=== PATIENT | male | born 1995 | race Caucasian/White ===

== ENCOUNTER 2023-04-26 15:20 | Emergency (ER) | payer OTHER, SELFPAY ==
--- NOTE | ~2023-04-26 | CT_ITS ---
EXAMINATION: CT ORBIT WITH CONTRAST CLINICAL INFORMATION: Right eyelid swelling and pain. COMPARISON: None available. TECHNIQUE: Axial images through the orbits following 85 mL Omnipaque 350 IV contrast. Sagittal and coronal reconstructions on the technologist workstation were performed. This CT examination was performed using dose optimization techniques as appropriate, variously including the following: *Automated exposure control *Adjustment of mA and/or kV according to patient size (this includes techniques or standardized protocols for targeted exams where dose is matched to indication/reason for exam; i.e. extremities or head) *Use of iterative reconstruction technique DLP: 172 mGy-cm FINDINGS: There is asymmetric enlargement of the right lacrimal gland and adjacent fat stranding suggestive of right lacrimal gland dacryoadenitis. There is increased soft tissue and a small amount of air more anterior inferiorly questionable right periorbital abscess. This measures 1.2 x 0.7 x 1.5 cm in dimension. There is right preseptal soft tissue swelling. The left orbit is normal. There is inflammatory change seen in the right frontal, maxillary and ethmoid sinuses. The mastoid air cells and middle ears are clear. Temporomandibular joints are normal. No adenopathy. Visualized intracranial structures are normal. CT/CT orbit BI w IV con IMPRESSION: Right lacrimal gland dacryoadenitis. There is an increased soft tissue and a small amount of air more anterior inferiorly questionable for small right periorbital abscess. Differential would include IgG4 pseudotumor and less likely lymphoma. Inflammatory changes in the right paranasal sinuses.
[2023-04-26 15:51] VITALS: BP 123/95; PULSE 83; RESP 18; TEMP 36.5; O2SAT 97; BMI 41.0
--- NOTE | 2023-04-26 15:56 | ED_ITS ---
HPI - Eye Problem General Chief complaint: Eye Problems Stated complaint: R eye swelling/?[place] eye Time Seen by Provider: 04/26/23 18:37 Source: patient, RN notes reviewed and old records reviewed Mode of arrival: ambulatory Limitations: no limitations History of Present Illness HPI Narrative: 28-year-old male presents for evaluation of right eye redness, swelling He reports that just under a week ago he noticed the redness, itching and discharge from the eye He states that his 1-year-old son was diagnosed with pinkeye about a week ago The patient's son was prescribed polymyxin B The patient discuss with his doctor and was given the same prescription He was unable to use the prescription and therefore was using his son's after consulting with the pharmacist Patient reports that after starting the polymyxin B prescription he noticed swelling starting 2 days ago. The I had previously been red with discharge but not been swollen He denies any trauma to the eye He denies any change to his vision No other complaints or concerns at this time Related Data Previous Rx's Medication Instructions Recorded amoxicillin 875 mg-potassium 1 tab PO Q12H #14 tabs 04/26/23 clavulanate 125 mg tablet moxifloxacin 0.5 % eye drops 1 drp ophthalmic (eye) TID 7 days 04/26/23 #3 mL Allergies Allergy/AdvReac Type Severity Reaction Status Date / Time No Known Allergies Allergy Verified 04/26/23 15:51 Review of Systems 2 Constitutional: Constitutional: Denies chills, Denies fever(s) and Denies headache(s) Eyes: Eyes: Denies blurry vision, Denies change in vision, Reports eye discharge, Reports irritation, Reports itchy eyes and Reports eye pain ENT: Denies headache(s) Cardiovascular: Cardiovascular: Denies dyspnea Respiratory: Respiratory: Denies cough and Denies dyspnea Musculoskeletal: Musculoskeletal: Denies back pain Integumentary/Breasts: Skin/Breast: Denies rash Neurologic: Denies headache(s) Allergic/Immunologic: Allergic/Immunologic: Reports itchy eyes PMFSH Social History Social History Advance Directives: No Advance Directives Information Provided: No Physical Exam 2 Vital Signs: Vital Signs: Last Vital Signs Temp 97.7 F 04/26/23 15:51 Pulse 83 04/26/23 15:51 Resp 18 04/26/23 15:51 BP 123/95 H 04/26/23 15:51 Pulse Ox 97 04/26/23 15:51 O2 Del Method Room Air 04/26/23 15:51 BMI result Body Mass Index 41.0 Const: General: healthy appearing, comfortable, no acute distress, alert and awake Nutritional Appearance: well nourished Orientation/consciousness: p atient oriented x3 HEENT: Head: Yes normocephalic and Yes atraumatic Eyes: Visual Fung: normal visual fung by confrontation Alignment and Position: alignment normal Periorbital: periorbital findings abnormal right periorbital swelling, periorbital tenderness and periorbital erythema; no ecchymosis and no crepitus Eyelids: Yes eyelid abnormality (Right upper eyelid slightly edematous and erythematous) Conjunctivae: conjunctival abnormal (Right-sided conjunctival injection, no chemosis) Pupils: Equal, round and reactive pupils present EOM: EOMs intact bilaterally (In all cardinal directions without nystagmus or entrapment) and No Nystagmus present Resp: Effort & Inspection: normal respiratory effort, able to speak in complete sentences and not labored Skin: General skin exam: elasticity normal Neuro: General: patient oriented x3 Cranial nerves: Yes CN's II-XII intact bilaterally, Yes Equal, round and reactive pupils present, Yes Bilaterally intact EOM present and No Nystagmus present Cognition (Neuro): normal cognition Course Course Course Narrative: BRE 15:57PM - 28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 Reports this all started on Saturday. Then he went to the urgent care on Saturday and was prescribed polymyxin drops and has been using this as prescribed with no symptomatic relief. He reports he did not have pain when looking towards the left with his right eye although for the past 2 days he has been. He denies any fevers, or any other symptoms complaints or concerns. On exam patient does have moderate erythema and soft tissue swelling to upper and lower right eyelids. Extraocular movements are intact although he reports pain to the right eye with looking towards the left. Plan: Labs, CT scan of orbits with IV contrast ordered at this time. Patient will be sent back to the waiting room. Reevaluation(s) Reevaluation #1: Patient's CT scan shows concerning for Periorbital cellulitis with Dr. Cadet and questionable small abscess. Given these findings, I discussed with Ophthalmology, Dr. Cole, after discussing the case he feels the patient is stable to be discharged home on oral antibiotics such as Augmentin. The patient should return to the ER for any new or worsening symptoms especially vision loss or severe pain. Otherwise he can follow-up as an outpatient. I discussed these concerns with the patient. His visual acuity in the right, affected eye is 20/30 which is better than his unaffected eye which is 20/70 on the left Time: 22:44 Medications Administered Discontinued Medications Generic Name Dose Route Start Last Admin Trade Name Freq PRN Reason Stop Dose Admin Iohexol 85 ml 04/26/23 20:16 04/26/23 20:17 Iohexol 350 Mg/Ml 100 Ml Infus..Btl IV 04/26/23 20:17 85 ml ONCE ONE Administration Medical Decision Making Medical Decision Making [facility] Narrative: 28-year-old male presents for evaluation of right eye redness, swelling and discharge from the eye. He reports that initially it was just the eye itself that was reddened he was prescribed polymyxin. He was taking use on prescription, as the pharmacy did not have the correct dose for him and he would have to wait 2 days. The patient is concerned that he may have had a reaction to the antibiotic drops as he reports the symptoms worsened after taking it. His symptoms have been improving since earlier this morning and he has not use the drops since 7:00 a.m. the patient does not wear corrective lenses or contacts. He has slightly erythematous and edematous right upper eyelid. I have a low suspicion for preseptal cellulitis as his extraocular motions are intact in all cardinal directions without discomfort. However a CT scan was ordered to evaluate for this and labs are pending Differential Diagnosis Differential Diagnoses: The differential diagnosis associated with the presentation includes Blepharitis Conjunctivitis blepheroconjunctivitis Preseptal cellulitis Periorbital cellulitis Admission/Observation Consideration of admission/observation: Escalation of care including admission/observation considered Consider admission for IV antibiotics given the CT findings Lab Data [facility] Lab Attestation statement: I reviewed the patient's lab results. Mild leukocytosis to 11.4 K without a left shift. No electrolyte abnormalities 04/26/23 19:20 01/19/24 18:34 Labs: Lab Results 04/26/23 04/26/23 Range/Units 18:34 19:20 WBC 11.4 H (4.8-10.8) X10*3/uL RBC 5.37 (4.60-5.80) X10*6/uL Hgb 16.0 (14.0-18.0) g/dl Hct 46.3 (42.0-52.0) % MCV 86.2 (80.0-98.0) fL MCH 29.8 (27.0-33.0) pg MCHC 34.6 (31.0-36.0) g/dl RDW 12.8 (11.0-16.0) % Plt Count 301 (160-400) X10*3/uL MPV 10.1 (9.4-12.4) fL Immature Gran % (Auto) 0.4 (0.0-0.4) % Neut % (Auto) 56.1 (45-73) % Lymph % (Auto) 34.1 (20-40) % [place] % (Auto) 6.9 (2-11) % Eos % (Auto) 1.8 (0-4) % Baso % (Auto) 0.7 (0-2) % Lymph # (Auto) 3.9 (1.2-4.9) X10*3/uL [place] # (Auto) 0.8 (0.1-1.2) X10*3/uL Eos # (Auto) 0.2 (0.0-0.4) X10*3/uL Baso # (Auto) 0.1 (0.0-0.2) X10*3/uL Abs Immat Gran (auto) 0.04 H (0.00-0.03) X10*3/uL Absolute Neuts (auto) 6.4 (2.0-8.3) x10*3/uL Absolute Nucleated RBC 0.000 (0.0-0.012) X10*3/uL Nucleated RBC % (auto) 0.0 (0.0-0.2) /100WBC Sodium 141 (135-145) mmol/L Potassium 4.5 (3.3-5.1) mmol/L Chloride 103 (96-108) mmol/L Carbon Dioxide 28 (22-29) mmol/L Anion Gap 15 (12-20) BUN 12 (9-16) mg/dL Creatinine 0.81 (0.5-1.4) mg/dL Estim Creat Clear Calc 171.3 Estimated GFR > 60 Random Glucose 82 (60-115) mg/dL Calcium 10.6 H (8.4-10.2) mg/dL Magnesium 2.2 (1.6-2.6) mg/dL Total Bilirubin 0.3 (0.0-1.0) mg/dL AST 19 (5-37) U/L ALT 26 (0-40) U/L Alkaline Phosphatase 111 (39-117) U/L Total Protein 8.7 H (6.5-8.0) g/dL Albumin 4.6 (3.5-5.0) g/dL Radiology Impression Discussion of test interpretation with radiology: I have reviewed the radiologist's reading. Radiologist Impression: Right lacrimal gland DrMorris Adenitis. There is increased soft tissue and small amount of air more anterior inferiorly questionable small right pleural abscess. Discharge Plan Discharge Clinical Impression: Periorbital cellulitis of right eye Patient Disposition: Home, Self-Care Instructions: Periorbital Cellulitis in Adults (ED) Additional Instructions: Use the eyedrops 1 drop 3 times a day for 7 days Take the oral antibiotic twice daily for 7 days You may apply cool compresses Return to the ER immediately for any new or worsening symptoms, especially vision loss Otherwise, you may follow-up with Ophthalmology, Dr. Cole at the number provided Prescriptions: New amoxicillin-pot clavulanate 875-125 mg tablet 1 tab PO Q12H Qty: 14 0RF moxifloxacin 0.5 % drops 1 drp ophthalmic (eye) TID 7 Days Qty: 3 0RF
[2023-04-26 18:59] LABS: Alanine Aminotransferase 26 U/L (0-40); Albumin Level 4.6 g/dL (3.5-5.0); Alkaline Phosphatase 111 U/L (39-117); Anion Gap 15 (12-20); Aspartate Amino Transferase 19 U/L (5-37); Bilirubin Total 0.3 mg/dL (0.0-1.0); Blood Urea Nitrogen 12 mg/dL (9-16); Calcium 10.6 mg/dL (8.4-10.2); Carbon Dioxide 28 mmol/L (22-29); Chloride 103 mmol/L (96-108); Creatinine Clr Calc Pharmacy 171.3; Estimated Glomerular Filt Rate > 60; Glucose Random 82 mg/dL (60-115); Magnesium 2.2 mg/dL (1.6-2.6); Potassium 4.5 mmol/L (3.3-5.1); Sodium 141 mmol/L (135-145); Total Protein 8.7 g/dL (6.5-8.0)
[2023-04-26 19:31] LABS: Basophils Absolute Auto 0.1 X10*3/uL (0.0-0.2); Basophils Percent Auto 0.7 % (0-2); Eosinophils Absolute Auto 0.2 X10*3/uL (0.0-0.4); Eosinophils Percent Auto 1.8 % (0-4); Hematocrit 46.3 % (42.0-52.0); Imm Gran Abs Auto 0.04 X10*3/uL (0.00-0.03); Imm Gran Pct Auto 0.4 % (0.0-0.4); Lymphocytes Absolute Auto 3.9 X10*3/uL (1.2-4.9); Lymphocytes Percent Auto 34.1 % (20-40); Mean Corpuscular HGB Conc 34.6 g/dl (31.0-36.0); Mean Corpuscular Hemoglobin 29.8 pg (27.0-33.0); Mean Corpuscular Volume 86.2 fL (80.0-98.0); Mean Platelet Volume 10.1 fL (9.4-12.4); Monocytes Absolute Auto 0.8 X10*3/uL (0.1-1.2); Monocytes Percent Auto 6.9 % (2-11); Neutrophils Absolute Auto 6.4 x10*3/uL (2.0-8.3); Neutrophils Percent Auto 56.1 % (45-73); Platelet Count 301 X10*3/uL (160-400); Red Blood Count 5.37 X10*6/uL (4.60-5.80); Red Cell Distribution Width 12.8 % (11.0-16.0); White Blood Count 11.4 X10*3/uL (4.8-10.8)
[2023-04-26] MEDS: iohexoL 350 MG/ML 100 ML INFUS..BTL 85 ML IV (20:17)
--- NOTE | 2023-04-26 22:49 | PC.NURSE ---
visual acuity complete, provider aware.
[2023-04-26] MEDS: Amoxicillin/Potassium Clav 875 MG TABLET PO (22:52)
--- NOTE | 2023-04-26 22:54 | PC.NURSE ---
pt medicated per MAR
== END 2023-04-26 23:06 | disposition home or self-care (01) ==
PROVIDERS: Physician Assistant Medical; Emergency Provider Emergency Medicine Emergency Medical Services
DX: L03.213 Periorbital cellulitis (principal); H57.11 Ocular pain, right eye
CPT/HCPCS: 36415; 70481; 80053; 83735; 85025; 99284; Q9967